=== PATIENT | female | born 1970 | race African-American/Black ===

== ENCOUNTER 2019-03-30 17:30 | Emergency (ER) | payer MEDICARE, MEDICAID ==
[~2019-03-30] VITALS: Ht 152.4 cm; Wt 75.0 kg
[2019-03-30 17:49] VITALS: BP 157/86
== END 2019-04-02 06:03 | disposition left against medical advice (07) ==
LOC: ER 17:30
DX: Z53.21 Procedure and treatment not carried out due to patient leaving prior to being seen by health care provider (principal)

== ENCOUNTER 2019-04-06 14:12 | Emergency (ER) | payer MEDICARE, MEDICAID ==
[~2019-04-06] VITALS: Ht 152.4 cm; Wt 68.0 kg
[2019-04-06 15:19] LABS: BASOPHILS % 0.9 % (0.0-2.0); EOSINOPHILS % 0.4 % (0.0-5.0); HEMATOCRIT. 38.1 % (36.0-48.0); LYMPHOCYTES % 27.9 % (20.0-50.0); MEAN CORPUSCULAR HEMOGLOBIN 30.3 pg (28.0-32.0); MEAN CORPUSCULAR VOLUME 88.6 fL (81.0-99.0); MEAN PLATELET VOLUME 7.1 fl (7.4-10.4); NEUTROPHILS % 61.8 % (40.0-76.0); PLATELET 383 x1000/uL (130-400); RED CELL DISTRIBUTION WIDTH 16.5 % (11.6-14.6)
[2019-04-06 15:21] LABS: CHLORIDE 101 mEq/L (98-107)
[2019-04-06 15:25] LABS: ETHANOL BLOOD < 10 mg/dL
[2019-04-06] MEDS ORDERED: POTASSIUM CHLORIDE 20MEQ TABLET SR PO NR (15:45)
[2019-04-06 16:19] LABS: CLARITY URINE CLEAR (CLEAR); COLOR URINE YELLOW (YELLOW); KETONES URINE NEGATIVE (NEGATIVE); LEUKOCYTE ESTERASE URINE NEGATIVE (NEGATIVE); NITRITE URINE NEGATIVE (NEGATIVE); OCCULT BLOOD URINE TRACE (NEGATIVE); PH URINE 6.5 (4.5-8.0); PROTEIN URINE NEGATIVE (NEGATIVE); SPECIFIC GRAVITY URINE 1.018 (1.005-1.030); UROBILINOGEN URINE 0.2 E.U./dL (0.2-1.0)
[2019-04-06 16:32] LABS: *AMPHETAMINES SCREEN URINE NEGATIVE (NEGATIVE); *BARBITURATES SCREEN URINE NEGATIVE (NEGATIVE); *BENZODIAZEPINES SCREEN URINE NEGATIVE (NEGATIVE); *COCAINE SCREEN URINE NEGATIVE (NEGATIVE); CANNABINOID URINE SCREEN NEGATIVE (NEGATIVE); METHADONE URINE SCREEN NEGATIVE (NEGATIVE); OPIATES URINE SCREEN NEGATIVE (NEGATIVE); PHENCYCLIDINE URINE SCREEN NEGATIVE (NEGATIVE)
[2019-04-07 15:40] VITALS: BP 129/71
[2019-04-10 17:15] LABS: CHLAMYDIA TRACHOMATIS NAA Negative (Negative); NEISSERIA GONORRHOEAE NAA Negative (Negative)
== END 2019-04-07 15:40 | disposition home or self-care (01) ==
LOC: ER 14:31
DX: R45.851 Suicidal ideations (principal); E87.6 Hypokalemia; N76.0 Acute vaginitis; F31.9 Bipolar disorder, unspecified; I10 Essential (primary) hypertension; F17.200 Nicotine dependence, unspecified, uncomplicated; Z71.6 Tobacco abuse counseling
CPT/HCPCS: 36415; 80305; 80320; 81003; 87210; 87491; 87591; 93005; 99284; 99406; G0480